=== PATIENT | male | born 1980 ===

== ENCOUNTER 2018-06-04 10:56 | Day surgery (SDC) | payer OTHER ==
[2018-06-04] MEDS ORDERED: Lactated Ringer's 500 ML IV ONE (14:05)
[2018-06-04] MEDS ORDERED: Propofol 10 mg/ml Inj (20 ML) ONE (14:11)
[2018-06-04 15:24] VITALS: TEMP 97
[2018-06-04 15:25] VITALS: O2SAT 100
[2018-06-04 15:39] VITALS: BP 125/75; PULSE 68; RESP 20
== END 2018-06-04 15:30 | disposition home or self-care (01) ==
LOC: C.ENDO 10:56
PROVIDERS: ATTEND Internal Medicine Gastroenterology
DX: K29.00 Acute gastritis without bleeding (principal); R10.13 Epigastric pain; K44.9 Diaphragmatic hernia without obstruction or gangrene; K21.9 Gastro-esophageal reflux disease without esophagitis; I10 Essential (primary) hypertension; F41.9 Anxiety disorder, unspecified
CPT/HCPCS: 43239; 88305; 88313; 88342; J2704; J7120